=== PATIENT | male | born 1980 | race Caucasian/White ===

== ENCOUNTER 2020-02-01 14:36 | Emergency (ER) | payer BC ==
[~2020-02-01] VITALS: Ht 170.2 cm; Wt 64.0 kg
[2020-02-01] MEDS ORDERED: HYDROCODONE/ACETAMINOPHEN 5/325MG TABLET PO STA (15:19)
[2020-02-01 15:31] LABS: BASOPHILS % 0.5 % (0.0-2.0); EOSINOPHILS % 0.4 % (0.0-5.0); HEMATOCRIT. 46.1 % (42.0-52.0); LYMPHOCYTES % 17.1 % (20.0-50.0); MEAN CORPUSCULAR HEMOGLOBIN 32.1 pg (28.0-32.0); MEAN CORPUSCULAR VOLUME 92.4 fL (80.0-94.0); MEAN PLATELET VOLUME 7.9 fl (7.4-10.4); MONOCYTES % 9.1 % (2.0-8.0); NEUTROPHILS % 72.9 % (40.0-76.0); PLATELET 306 x1000/uL (130-400); RED BLOOD CELL COUNT 4.99 mill/uL (4.7-6.1); RED CELL DISTRIBUTION WIDTH 12.4 % (11.6-14.6)
[2020-02-01 15:37] LABS: CHLORIDE 106 mEq/L (98-107)
[2020-02-01 15:41] LABS: D-DIMER 0.23 mg/L FEU (<0.50); PROTHROMBIN TIME 10.9 sec (9.6-11.0)
[2020-02-01 18:07] LABS: CLARITY URINE CLEAR (CLEAR); COLOR URINE YELLOW (YELLOW); KETONES URINE 1+ (NEGATIVE); LEUKOCYTE ESTERASE URINE NEGATIVE (NEGATIVE); NITRITE URINE NEGATIVE (NEGATIVE); OCCULT BLOOD URINE NEGATIVE (NEGATIVE); PH URINE 5.5 (4.5-8.0); PROTEIN URINE NEGATIVE (NEGATIVE); SPECIFIC GRAVITY URINE 1.027 (1.005-1.030); UROBILINOGEN URINE 0.2 E.U./dL (0.2-1.0)
[2020-02-01 18:14] VITALS: BP 132/88
== END 2020-02-01 18:38 | disposition home or self-care (01) ==
LOC: ER 14:36
DX: M79.605 Pain in left leg (principal); Z91.041 Radiographic dye allergy status
CPT/HCPCS: 36415; 71045; 80053; 81003; 83880; 84484; 85025; 85379; 93005; 93971; 99285